=== PATIENT | male | born 1980 | race Two or more races ===

== ENCOUNTER 2018-10-27 09:15 | Emergency (ER) | payer MEDICAID ==
[~2018-10-27] VITALS: Ht 170.2 cm; Wt 99.0 kg
[2018-10-27] MEDS ORDERED: ketorolac tromethamine 15mg/ml inj. IM ONE (10:10)
[2018-10-27 10:11] LABS: BASOPHILS # (AUTO) 0.1 X10'3 (0-0.2); BASOPHILS % (AUTO) 0.7 % (0-1); EOSINOPHILS # (AUTO) 0.2 X10'3 (0-0.9); HEMATOCRIT 45.1 % (42.0-52.0); HEMOGLOBIN 15.3 g/dl (14.0-17.9); LYMPHOCYTES # (AUTO) 1.9 X10'3 (1.1-4.8); LYMPHOCYTES % (AUTO) 21.1 % (21-51); MEAN CORPUSCULAR HEMOGLOBIN 30.6 PG (27.0-31.0); MEAN CORPUSCULAR HGB CONC 33.9 g/dL (33.0-36.5); MEAN CORPUSCULAR VOLUME 90.1 FL (78-98); MEAN PLATELET VOLUME 6.9 FL (7.4-10.4); MONOCYTES # (AUTO) 1.1 X10'3 (0-0.9); MONOCYTES % (AUTO) 12.6 % (2-12); NEUTROPHILS # (AUTO) 5.6 X10'3 (1.8-7.7); NEUTROPHILS % (AUTO) 63.6 % (42-75); PLATELET COUNT 300 X10'3 (140-440); RED BLOOD COUNT 5.01 X10'6 (4.70-6.10); RED CELL DISTRIBUTION WIDTH 13.4 % (11.5-14.5); WHITE BLOOD COUNT 8.8 X10'3 (4.5-11.0)
[2018-10-27 10:13] LABS: CLARITY,URINE CLEAR (Clear); COLOR,URINE YELLOW (Yellow); GLUCOSE, URINE NEGATIVE (Neg); KETONES,URINE TRACE mg/dl (Neg); LEUKOCYTE ESTERASE ,URINE NEGATIVE (Neg); NITRITES, URINE NEGATIVE (Neg); OCCULT BLOOD,URINE SMALL (Neg); PROTEIN,URINE 30 mg/dl (Neg); UA COLLECTION TYPE CLN CATCH MIDSTREAM; UROBILINOGEN,URINE 0.2 E.U/dL (0.2-1.0)
[2018-10-27 10:19] LABS: MUCUS STRANDS FEW /LPF (Neg); SQUAMOUS EPITHELIAL CELL,UR FEW /LPF (FEW)
[2018-10-27 10:20] LABS: BACTERIA,URINE 1+ /HPF (Neg); RBC,URINE 0-2 /HPF (0-2); WBC,URINE 0-4 /HPF (0-4)
[2018-10-27 10:37] LABS: ALANINE AMINOTRANSFERASE 37 U/L (12-78); ALBUMIN 3.6 G/DL (3.4-5.0); ALBUMIN/GLOBULIN RATIO 0.8 (1.1-1.5); ALKALINE PHOSPHATASE 100 IU/L (46-116); ANION GAP 4 (8-16); ASPARTATE AMINO TRANSFERASE 18 U/L (10-37); BILIRUBIN,TOTAL 0.4 MG/DL (0.1-1.0); BLOOD UREA NITROGEN 16 MG/DL (7-18); BUN/CREATININE RATIO 7.9 (5.4-32.0); CHLORIDE 103 MMOL/L (99-107); CREATININE 2.03 MG/DL (0.60-1.10); GLUCOSE 112 MG/DL (70-104); LIPASE 122 U/L (73-393); POTASSIUM 3.8 MMOL/L (3.5-5.1); SODIUM 137 MMOL/L (135-145); TOTAL CARBON DIOXIDE 29.6 MMOL/L (24-32); TOTAL PROTEIN 7.9 G/DL (6.4-8.2); eGFR 37 ML/MIN
[2018-10-27] MEDS ORDERED: HYDROcodone/acetaminophen 5mg/325mg tablet PO ONE (10:40)
[2018-10-27 10:49] LABS: CALCIUM 9.1 MG/DL (8.5-10.1)
[2018-10-27] MEDS ORDERED: normal saline 1000ML IV soln IVB ONE (11:00)
[2018-10-27] MEDS ORDERED: FLO0.4C PO (12:30)
[2018-10-27] MEDS ORDERED: HYDR-3965 PO (12:30)
[2018-10-27] MEDS ORDERED: ONDA4TAB6 PO (12:30)
[2018-10-27 12:52] VITALS: BP 154/104
== END 2018-10-27 12:52 | disposition home or self-care (01) ==
LOC: ER 09:16
DX: N13.2 Hydronephrosis with renal and ureteral calculous obstruction (principal); R11.10 Vomiting, unspecified; G89.29 Other chronic pain; Z79.899 Other long term (current) drug therapy
CPT/HCPCS: 36415; 74176; 80053; 81001; 83690; 85025; 96360; 96372; 99284; J1885; J7030

== ENCOUNTER 2020-04-22 15:56 | Emergency (ER) | payer MEDICAID ==
[~2020-04-22] VITALS: Ht 170.2 cm; Wt 111.0 kg
[~2020-04-22 15:56] MED LIST: ONDA4TAB6 PO
== END 2020-04-22 17:03 | disposition home or self-care (01) ==
LOC: ER 15:57
DX: R51.9 Headache, unspecified (principal); Z20.828 Contact with and (suspected) exposure to other viral communicable diseases; G89.29 Other chronic pain; Z79.899 Other long term (current) drug therapy
CPT/HCPCS: 36415; 87635; 93005; 99284

== ENCOUNTER 2020-09-03 17:55 | Emergency (ER) | payer MEDICAID ==
[~2020-09-03] VITALS: Ht 170.2 cm; Wt 104.3 kg
[2020-09-03 20:05] LABS: BASOPHILS # (AUTO) 0.1 X10'3 (0-0.2); BASOPHILS % (AUTO) 1.2 % (0-1); EOSINOPHILS # (AUTO) 0.2 X10'3 (0-0.9); EOSINOPHILS % (AUTO) 2.5 % (0-6); HEMATOCRIT 41.2 % (42.0-52.0); HEMOGLOBIN 14.1 g/dl (14.0-17.9); LYMPHOCYTES # (AUTO) 2.1 X10'3 (1.1-4.8); LYMPHOCYTES % (AUTO) 25.5 % (21-51); MEAN CORPUSCULAR HEMOGLOBIN 30.3 PG (27.0-31.0); MEAN CORPUSCULAR HGB CONC 34.1 g/dL (33.0-36.5); MEAN CORPUSCULAR VOLUME 88.7 FL (78-98); MEAN PLATELET VOLUME 6.5 FL (7.4-10.4); MONOCYTES % (AUTO) 12.2 % (2-12); NEUTROPHILS # (AUTO) 4.8 X10'3 (1.8-7.7); NEUTROPHILS % (AUTO) 58.6 % (42-75); PLATELET COUNT 314 X10'3 (140-440); RED BLOOD COUNT 4.64 X10'6 (4.70-6.10); RED CELL DISTRIBUTION WIDTH 13.8 % (11.5-14.5); WHITE BLOOD COUNT 8.2 X10'3 (4.5-11.0)
[2020-09-03 20:17] LABS: PARTIAL THROMBOPLASTIN TIME 28 SECONDS (22-32)
[2020-09-03 20:20] LABS: ALANINE AMINOTRANSFERASE 37 U/L (12-78); ALBUMIN 3.5 G/DL (3.4-5.0); ALBUMIN/GLOBULIN RATIO 0.9 (1.1-1.5); ALKALINE PHOSPHATASE 105 IU/L (46-116); ANION GAP 7 (8-16); ASPARTATE AMINO TRANSFERASE 23 U/L (10-37); BILIRUBIN,TOTAL 0.2 MG/DL (0.1-1.0); BLOOD UREA NITROGEN 14 MG/DL (7-18); BUN/CREATININE RATIO 10.3 (5.4-32.0); C-REACTIVE PROTEIN 2.21 MG/DL (0.0-0.5); CALCIUM 8.5 MG/DL (8.5-10.1); CHLORIDE 107 MMOL/L (99-107); CREATININE 1.36 MG/DL (0.60-1.10); GLUCOSE 103 MG/DL (70-104); POTASSIUM 3.9 MMOL/L (3.5-5.1); SODIUM 142 MMOL/L (135-145); TOTAL CARBON DIOXIDE 28.2 MMOL/L (24-32); TOTAL PROTEIN 7.6 G/DL (6.4-8.2); eGFR 58 ML/MIN
[2020-09-03] MEDS ORDERED: CEPH-585 PO (21:33)
[2020-09-03] MEDS ORDERED: PRED20TA PO (21:35)
[2020-09-03] MEDS ORDERED: mupirocin 2% ointment 22GM TP ONE (21:40)
[2020-09-03 21:46] VITALS: BP 160/92
== END 2020-09-03 21:48 | disposition home or self-care (01) ==
LOC: ER 17:55
DX: L03.115 Cellulitis of right lower limb (principal); M79.671 Pain in right foot; M79.604 Pain in right leg; Z79.2 Long term (current) use of antibiotics; Z79.899 Other long term (current) drug therapy
CPT/HCPCS: 36415; 73630; 80053; 85025; 85610; 85651; 85730; 86140; 99284

== ENCOUNTER 2020-09-25 17:17 | Emergency (ER) | payer MEDICAID ==
[~2020-09-25 17:17] MED LIST changes: +PRED20TA PO
== END 2020-09-25 19:11 | disposition left against medical advice (07) ==
LOC: ER 17:17
DX: R10.9 Unspecified abdominal pain (principal); Z53.21 Procedure and treatment not carried out due to patient leaving prior to being seen by health care provider

== ENCOUNTER 2021-12-09 08:18 | Emergency (ER) | payer MEDICAID ==
[~2021-12-09] VITALS: Ht 170.2 cm; Wt 121.0 kg
[~2021-12-09 08:18] MED LIST changes: -PRED20TA PO
[2021-12-09 08:23] VITALS: BP 235/135
== END 2021-12-09 11:21 | disposition left against medical advice (07) ==
LOC: ER 08:18
DX: K08.89 Other specified disorders of teeth and supporting structures (principal); Z53.21 Procedure and treatment not carried out due to patient leaving prior to being seen by health care provider

== ENCOUNTER 2021-12-09 20:24 | Emergency (ER) | payer MEDICAID ==
[~2021-12-09] VITALS: Ht 170.2 cm; Wt 120.8 kg
[2021-12-09 20:41] VITALS: BP 203/113
== END 2021-12-09 23:21 | disposition left against medical advice (07) ==
LOC: ER 20:25
DX: K13.79 Other lesions of oral mucosa (principal); Z53.21 Procedure and treatment not carried out due to patient leaving prior to being seen by health care provider

== ENCOUNTER 2021-12-23 13:32 | Emergency (ER) | payer MEDICAID ==
[~2021-12-23] VITALS: Ht 170.2 cm; Wt 118.2 kg
[2021-12-23 13:42] VITALS: BP 205/124
== END 2021-12-23 17:58 | disposition left against medical advice (07) ==
LOC: ER 13:32
DX: K08.89 Other specified disorders of teeth and supporting structures (principal); Z53.21 Procedure and treatment not carried out due to patient leaving prior to being seen by health care provider

== ENCOUNTER 2021-12-25 00:39 | Emergency (ER) | payer MEDICAID ==
[~2021-12-25] VITALS: Ht 170.2 cm; Wt 122.6 kg
[2021-12-25 00:43] VITALS: BP 208/125
[2021-12-25] MEDS ORDERED: amoxicillin 250mg capsule PO ONE (03:05)
[2021-12-25] MEDS ORDERED: AMOX500C2 PO (03:05)
--- NOTE | 2021-12-25 03:10 | NUR ---
po med given
== END 2021-12-25 03:10 | disposition home or self-care (01) ==
LOC: ER 00:39
DX: K04.7 Periapical abscess without sinus (principal); K08.89 Other specified disorders of teeth and supporting structures; F17.200 Nicotine dependence, unspecified, uncomplicated; Z79.2 Long term (current) use of antibiotics; Z79.899 Other long term (current) drug therapy
CPT/HCPCS: 99283

== ENCOUNTER 2023-03-25 05:38 | Emergency (ER) | payer MEDICAID ==
[~2023-03-25] VITALS: Ht 170.2 cm; Wt 120.0 kg
[2023-03-25 05:42] VITALS: BP 178/119; PULSE 100; RESP 20; TEMP 98.2; O2SAT 99
== END 2023-03-25 07:21 | disposition left against medical advice (07) ==
LOC: ER 05:38
DX: R06.02 Shortness of breath (principal); Z53.21 Procedure and treatment not carried out due to patient leaving prior to being seen by health care provider
CPT/HCPCS: 71045; 93005; 99281

== ENCOUNTER 2023-04-22 23:58 | Inpatient (IN) | payer MEDICAID ==
[~2023-04-22] VITALS: Ht 170.2 cm; Wt 120.0 kg
[2023-04-23 00:03] VITALS: TEMP 98
[2023-04-23 00:53] LABS: BASOPHILS % (AUTO) 0.3 % (0-1); EOSINOPHILS # (AUTO) 0.1 X10'3 (0-0.9); EOSINOPHILS % (AUTO) 1.6 % (0-6); HEMATOCRIT 52.9 % (42.0-52.0); HEMOGLOBIN 17.7 g/dl (14.0-17.9); LYMPHOCYTES # (AUTO) 2.3 X10'3 (1.1-4.8); LYMPHOCYTES % (AUTO) 24.9 % (21-51); MEAN CORPUSCULAR HEMOGLOBIN 29.5 PG (27.0-31.0); MEAN CORPUSCULAR HGB CONC 33.6 g/dL (33.0-36.5); MEAN CORPUSCULAR VOLUME 87.9 FL (78-98); MONOCYTES % (AUTO) 10.1 % (2-12); NEUTROPHILS # (AUTO) 5.9 X10'3 (1.8-7.7); NEUTROPHILS % (AUTO) 63.1 % (42-75); PLATELET COUNT 324 X10'3 (140-440); RED BLOOD COUNT 6.02 X10'6 (4.70-6.10); WHITE BLOOD COUNT 9.4 X10'3 (4.5-11.0)
[2023-04-23 01:04] LABS: ALANINE AMINOTRANSFERASE 48 U/L (12-78); ALBUMIN 3.2 G/DL (3.4-5.0); ALBUMIN/GLOBULIN RATIO 0.8 (1.1-1.5); ALKALINE PHOSPHATASE 80 IU/L (46-116); ANION GAP 8 (8-16); ASPARTATE AMINO TRANSFERASE 39 U/L (10-37); BILIRUBIN,TOTAL 0.5 MG/DL (0.1-1.0); BLOOD UREA NITROGEN 11 MG/DL (7-18); BUN/CREATININE RATIO 6.8 (10.0-20.0); CALCIUM 8.5 MG/DL (8.5-10.1); CHLORIDE 104 MMOL/L (99-107); CREATININE 1.62 MG/DL (0.60-1.10); GLUCOSE 164 MG/DL (70-104); POTASSIUM 3.6 MMOL/L (3.5-5.1); SODIUM 139 MMOL/L (135-145); TOTAL CARBON DIOXIDE 27.1 MMOL/L (24-32); TOTAL PROTEIN 7.1 G/DL (6.4-8.2); eCRCL 54 ML/MIN; eGFR 47 ML/MIN
[2023-04-23 01:12] LABS: PRO BRAIN NATRIURETIC PEPTIDE 651 PG/ML (0-125)
[2023-04-23] MEDS ORDERED: niCARDipine-NS 40mg/200ml IVPB 200 ML IV PRN (01:20)
[2023-04-23] MEDS ORDERED: aspirin 325mg tablet PO ONE (01:20)
[2023-04-23] MEDS ORDERED: enoxaparin 100mg/ml syringe SUBCUT ONE (01:30)
[2023-04-23] MEDS ORDERED: enoxaparin 60mg/0.6ml syringe SUBCUT ONE (01:35)
[2023-04-23] MEDS ORDERED: niCARDipine-NS 40mg/200ml IVPB 200 ML IV SCH (01:50)
[2023-04-23] MEDS ORDERED: magnesium Cl slow-release 64mg tablet PO PRN (01:50)
[2023-04-23] MEDS ORDERED: morphine 2 MG/ML inj. syringe IV PRN (01:50)
[2023-04-23] MEDS ORDERED: magnesium 2GM in 50ml NS 50 ML IV PRN (01:50)
[2023-04-23] MEDS ORDERED: HYDROcodone/acetaminophen 5mg/325mg tablet PO PRN (01:50)
[2023-04-23] MEDS ORDERED: ondansetron/PF 4mg/2ml inj IV PRN (01:50)
[2023-04-23] MEDS ORDERED: potassium Cl 40MEQ/1/2NS 520ml 520 ML IV PRN (01:50)
[2023-04-23] MEDS ORDERED: potassium Cl 20 mEq SR tablet PO PRN ×2 (01:50)
[2023-04-23] MEDS ORDERED: magnesium 4gm in 100ml NS 100 ML IV PRN (01:50)
[2023-04-23] MEDS ORDERED: acetaminophen 325mg tablet PO PRN ×2 (01:50)
[2023-04-23 02:11] LABS: D-DIMER 0.65 MG/L FEU (0-0.50)
[2023-04-23] MEDS ORDERED: albuterol 2.5 MG/3 ML nebule NEB SCH (04:00)
[2023-04-23 04:43] VITALS: PULSE 91; RESP 18; O2SAT 91
[2023-04-23 04:57] LABS: BILIRUBIN,URINE NEGATIVE (Neg); CLARITY,URINE CLEAR (Clear); COLOR,URINE YELLOW (Yellow); GLUCOSE, URINE 100 mg/dl (Neg); KETONES,URINE NEGATIVE (Neg); LEUKOCYTE ESTERASE ,URINE NEGATIVE (Neg); NITRITES, URINE NEGATIVE (Neg); OCCULT BLOOD,URINE TRACE-INTACT (Neg); PROTEIN,URINE TRACE mg/dl (Neg); UROBILINOGEN,URINE 0.2 E.U/dL (0.2-1.0)
[2023-04-23 04:58] LABS: UA COLLECTION TYPE VOIDED
[2023-04-23 05:11] LABS: BACTERIA,URINE FEW /HPF (Neg); MUCUS STRANDS FEW /LPF (Neg); RBC,URINE 0-2 /HPF (0-2); SQUAMOUS EPITHELIAL CELL,UR FEW /LPF (FEW); WBC,URINE 0-4 /HPF (0-4)
[2023-04-23 05:25] LABS: URINE AMPHETAMINE SCREEN POSITIVE (Neg); URINE BARBITUATE SCREEN NEGATIVE (Neg); URINE BENZODIAZEPINES SCREEN NEGATIVE (Neg); URINE CANNABINOID SCREEN NEGATIVE (Neg); URINE COCAINE SCREEN NEGATIVE (Neg); URINE METHADONE SCREEN NEGATIVE (Neg); URINE OPIATE SCREEN NEGATIVE (Neg); URINE PHENCYCLIDINE SCREEN NEGATIVE (Neg)
[2023-04-23] MEDS ORDERED: lisinopril 10 MG tablet PO ONE (06:00)
[2023-04-23 06:18] VITALS: BP 160/98; PULSE 90; RESP 18; O2SAT 97
[2023-04-23] MEDS ORDERED: methylPREDNISolone sod succ 125mg/2ml vial IV SCH (08:00)
[2023-04-23] MEDS ORDERED: CefTRIAXone 2gm/D5W 50ml BAG 50 ML IV SCH (08:00)
[2023-04-23] MEDS ORDERED: enoxaparin 40mg/0.4ml syringe SQ SCH (20:00)
[2023-04-23] MEDS ORDERED: temazepam 15mg capsule PO PRN (21:00)
== END 2023-04-23 06:33 | disposition left against medical advice (07) | DRG 199 ==
LOC: ER 23:59 → ED HOLD 04-23 01:53
PROVIDERS: ADMIT Internal Medicine; ATTEND Internal Medicine
DX: I16.1 Hypertensive emergency (principal); I21.A1 Myocardial infarction type 2; Z53.21 Procedure and treatment not carried out due to patient leaving prior to being seen by health care provider; F17.200 Nicotine dependence, unspecified, uncomplicated; G89.29 Other chronic pain; I12.9 Hypertensive chronic kidney disease with stage 1 through stage 4 chronic kidney disease, or unspecified chronic kidney disease; N18.9 Chronic kidney disease, unspecified; F19.10 Other psychoactive substance abuse, uncomplicated; Z79.899 Other long term (current) drug therapy
CPT/HCPCS: 36415; 71045; 80053; 80305; 81001; 83880; 84145; 84484; 85025; 85379; 85651; 87040; 93005; 94760; 99285; G0378; J1650; J3490

== ENCOUNTER 2023-04-28 11:07 | Emergency (ER) | payer MEDICAID ==
[~2023-04-28] VITALS: Ht 170.2 cm; Wt 124.6 kg
[2023-04-28 11:21] LABS: BASOPHILS # (AUTO) 0.2 X10'3 (0-0.2); BASOPHILS % (AUTO) 1.5 % (0-1); EOSINOPHILS # (AUTO) 0.1 X10'3 (0-0.9); EOSINOPHILS % (AUTO) 1.1 % (0-6); HEMATOCRIT 56.7 % (42.0-52.0); LYMPHOCYTES # (AUTO) 2.4 X10'3 (1.1-4.8); MEAN CORPUSCULAR HEMOGLOBIN 29.1 PG (27.0-31.0); MEAN CORPUSCULAR VOLUME 88.4 FL (78-98); MEAN PLATELET VOLUME 7.2 FL (7.4-10.4); MONOCYTES # (AUTO) 1.2 X10'3 (0-0.9); MONOCYTES % (AUTO) 9.9 % (2-12); NEUTROPHILS # (AUTO) 8.6 X10'3 (1.8-7.7); NEUTROPHILS % (AUTO) 68.5 % (42-75); PLATELET COUNT 333 X10'3 (140-440); RED BLOOD COUNT 6.41 X10'6 (4.70-6.10); RED CELL DISTRIBUTION WIDTH 16.3 % (11.5-14.5); WHITE BLOOD COUNT 12.5 X10'3 (4.5-11.0)
[2023-04-28 11:25] VITALS: BP 219/126; PULSE 103; RESP 22; TEMP 98.2; O2SAT 96
[2023-04-28] MEDS ORDERED: cloNIDine 0.1 mg tablet PO ONE (11:40)
[2023-04-28 11:56] LABS: HEMOGLOBIN 18.7 g/dl (14.0-17.9)
[2023-04-28 12:07] LABS: ALANINE AMINOTRANSFERASE 45 U/L (12-78); ALBUMIN 3.4 G/DL (3.4-5.0); ALBUMIN/GLOBULIN RATIO 0.8 (1.1-1.5); ALKALINE PHOSPHATASE 93 IU/L (46-116); ANION GAP 13 (8-16); ASPARTATE AMINO TRANSFERASE 41 U/L (10-37); BILIRUBIN,TOTAL 0.5 MG/DL (0.1-1.0); BLOOD UREA NITROGEN 13 MG/DL (7-18); BUN/CREATININE RATIO 8.3 (10.0-20.0); CALCIUM 8.9 MG/DL (8.5-10.1); CHLORIDE 101 MMOL/L (99-107); CREATININE 1.57 MG/DL (0.60-1.10); GLUCOSE 172 MG/DL (70-104); POTASSIUM 3.5 MMOL/L (3.5-5.1); SODIUM 137 MMOL/L (135-145); TOTAL CARBON DIOXIDE 22.8 MMOL/L (24-32); TOTAL PROTEIN 7.8 G/DL (6.4-8.2); eCRCL 56 ML/MIN; eGFR 48 ML/MIN
[2023-04-28 12:13] LABS: PRO BRAIN NATRIURETIC PEPTIDE 986 PG/ML (0-125)
[2023-04-28 12:34] LABS: APTT 31 SECONDS (22-32); D-DIMER 0.79 MG/L FEU (0-0.50); INR 1.1 INR; PROTHROMBIN TIME 12.2 SECONDS (9.0-12.0)
== END 2023-04-28 14:20 | disposition left against medical advice (07) ==
LOC: ER 11:07
DX: R06.02 Shortness of breath (principal); Z53.21 Procedure and treatment not carried out due to patient leaving prior to being seen by health care provider
CPT/HCPCS: 36415; 71045; 80053; 83880; 84484; 85025; 85379; 85610; 85730; 93005; 99281

== ENCOUNTER 2024-06-17 12:12 | Inpatient (IN) | payer MEDICAID ==
[~2024-06-17] VITALS: Ht 170.2 cm; Wt 124.0 kg
[2024-06-17 12:58] LABS: BASOPHILS # (AUTO) 0.1 X10'3 (0-0.2); BASOPHILS % (AUTO) 0.8 % (0-1); EOSINOPHILS # (AUTO) 0.1 X10'3 (0-0.9); EOSINOPHILS % (AUTO) 1.3 % (0-6); LYMPHOCYTES # (AUTO) 2.2 X10'3 (1.1-4.8); LYMPHOCYTES % (AUTO) 20.6 % (21-51); MEAN CORPUSCULAR HEMOGLOBIN 30.9 PG (27.0-31.0); MEAN CORPUSCULAR HGB CONC 33.6 g/dL (33.0-36.5); MEAN CORPUSCULAR VOLUME 91.9 FL (78-98); MONOCYTES % (AUTO) 9.1 % (2-12); NEUTROPHILS # (AUTO) 7.3 X10'3 (1.8-7.7); NEUTROPHILS % (AUTO) 68.2 % (42-75); PLATELET COUNT 273 X10'3 (140-440); RED BLOOD COUNT 6.63 X10'6 (4.70-6.10); RED CELL DISTRIBUTION WIDTH 14.2 % (11.5-14.5); WHITE BLOOD COUNT 10.8 X10'3 (4.5-11.0)
[2024-06-17 13:01] LABS: HEMOGLOBIN 20.5 g/dl (14.0-17.9)
[2024-06-17 13:11] LABS: ALANINE AMINOTRANSFERASE 43 U/L (12-78); ALBUMIN 3.5 G/DL (3.4-5.0); ALBUMIN/GLOBULIN RATIO 0.7 (1.1-1.5); ALKALINE PHOSPHATASE 143 IU/L (46-116); ANION GAP 6 (8-16); ASPARTATE AMINO TRANSFERASE 40 U/L (10-37); BILIRUBIN,TOTAL 0.4 MG/DL (0.1-1.0); BLOOD UREA NITROGEN 12 MG/DL (7-18); BUN/CREATININE RATIO 8.1 (10.0-20.0); CALCIUM 8.8 MG/DL (8.5-10.1); CHLORIDE 97 MMOL/L (99-107); CREATININE 1.48 MG/DL (0.60-1.10); POTASSIUM 4.6 MMOL/L (3.5-5.1); SODIUM 133 MMOL/L (135-145); TOTAL CARBON DIOXIDE 29.7 MMOL/L (24-32); TOTAL PROTEIN 8.2 G/DL (6.4-8.2); eCRCL 59 ML/MIN; eGFR 51 ML/MIN
[2024-06-17 13:15] LABS: GLUCOSE 424 MG/DL (70-104)
[2024-06-17 13:18] LABS: PRO BRAIN NATRIURETIC PEPTIDE 650 PG/ML (0-125)
[2024-06-17] MEDS ORDERED: enalaprilat 1.25mg/ml 2ml vial IV ONE (13:30)
[2024-06-17] MEDS: normal saline 1000ML IV soln IVB ONE ×2 (14:04→15:03)
[2024-06-17] MEDS: nitroGLYCERIN 0.4mg/hour patch TD ONE (14:04)
[2024-06-17] MEDS: aspirin 81mg tab.chew PO ONE (14:13)
[2024-06-17] MEDS: carvedilol 6.25mg tablet PO STA (14:13)
[2024-06-17] MEDS: enalaprilat 1.25mg/ml 2ml vial IV ONE (14:13)
[2024-06-17] MEDS ORDERED: ondansetron/PF 4mg/2ml inj IV PRN (15:05)
[2024-06-17] MEDS ORDERED: potassium Cl 20 mEq SR tablet PO PRN ×2 (15:05)
[2024-06-17] MEDS ORDERED: potassium Cl 40MEQ/1/2NS 520ml 520 ML IV PRN (15:05)
[2024-06-17] MEDS ORDERED: magnesium sulf-water 2g/50mL 50 ML IV PRN (15:05)
[2024-06-17] MEDS ORDERED: magnesium Cl slow-release 64mg tablet PO PRN (15:05)
[2024-06-17] MEDS ORDERED: acetaminophen 325mg tablet PO PRN (15:05)
[2024-06-17] MEDS ORDERED: magnesium sulf-water 4G/100mL 100 ML IV PRN (15:05)
[2024-06-17] MEDS: insulin regular, human 10 units/0.1 ml syringe SQ ONE (15:07)
[2024-06-17] MEDS: PERFLUTREN PROTEIN-A MICROSPHR (Optison) 0.22 MG/ML 3ML VIAL IV ONE (15:09)
[2024-06-17] MEDS ORDERED: glucagon, human recombinant 1mg kit SUBCUT PRN (15:10)
[2024-06-17] MEDS ORDERED: dextrose 50%-water 50ml dispensing syringe IV PRN ×2 (15:10)
[2024-06-17] MEDS ORDERED: DEXTROSE 15 GM of carb/4 tabs (each vial/BOTTLE has 4 tablets) PO PRN ×2 (15:10)
[2024-06-17] MEDS ORDERED: SACU1TAB4 PO (15:12)
[2024-06-17] MEDS ORDERED: CARV-50 PO (15:12)
[2024-06-17] MEDS ORDERED: FURO40TA4 PO (15:12)
[2024-06-17] MEDS ORDERED: ATOR40TA72 PO (15:12)
[2024-06-17] MEDS ORDERED: ASPI-1475 PO (15:12)
[2024-06-17] MEDS ORDERED: SPIR25TA5 PO (15:12)
[2024-06-17] MEDS ORDERED: LOSA100T58 PO (15:12)
[2024-06-17 16:46] LABS: HEMOGLOBIN A1C 10.3 % (4.5-6.2)
[2024-06-17] MEDS: furosemide 40mg/4ml inj IV ONE (17:09)
[2024-06-17] MEDS: INSULIN LISPRO 100 UNIT/ML INSULN.PEN MULTI-DOSE SQ SCH ×2 (17:30→18:41)
[2024-06-17 17:55] VITALS: BP 137/76; PULSE 109; RESP 20; O2SAT 95
[2024-06-17] MEDS ORDERED: labetalol 20mg/4ml (5mg/ml) syringe IV PRN (18:00)
[2024-06-17 18:04] LABS: BILIRUBIN,URINE NEGATIVE (Neg); CLARITY,URINE CLEAR (Clear); COLOR,URINE YELLOW (Yellow); GLUCOSE, URINE >=1000 mg/dl (Neg); KETONES,URINE NEGATIVE (Neg); LEUKOCYTE ESTERASE ,URINE NEGATIVE (Neg); NITRITES, URINE NEGATIVE (Neg); OCCULT BLOOD,URINE NEGATIVE (Neg); PROTEIN,URINE NEGATIVE (Neg); UROBILINOGEN,URINE 0.2 E.U/dL (0.2-1.0)
[2024-06-17 18:11] LABS: UA COLLECTION TYPE NON-SPECIFIED
[2024-06-17 18:12] LABS: WBC,URINE NONE SEEN /HPF (0-4)
[2024-06-17 18:13] LABS: BACTERIA,URINE FEW /HPF (Neg); RBC,URINE 0-2 /HPF (0-2); SQUAMOUS EPITHELIAL CELL,UR NONE SEEN /LPF (FEW)
[2024-06-17 18:23] LABS: URINE AMPHETAMINE SCREEN POSITIVE (Neg); URINE BARBITUATE SCREEN NEGATIVE (Neg); URINE BENZODIAZEPINES SCREEN NEGATIVE (Neg); URINE CANNABINOID SCREEN NEGATIVE (Neg); URINE COCAINE SCREEN NEGATIVE (Neg); URINE METHADONE SCREEN NEGATIVE (Neg); URINE OPIATE SCREEN NEGATIVE (Neg); URINE PHENCYCLIDINE SCREEN NEGATIVE (Neg)
[2024-06-17 18:27] LABS: BASOPHILS # (AUTO) 0.1 X10'3 (0-0.2); BASOPHILS % (AUTO) 1.3 % (0-1); EOSINOPHILS # (AUTO) 0.2 X10'3 (0-0.9); EOSINOPHILS % (AUTO) 1.8 % (0-6); HEMATOCRIT 53.8 % (42.0-52.0); LYMPHOCYTES # (AUTO) 2.1 X10'3 (1.1-4.8); LYMPHOCYTES % (AUTO) 22.2 % (21-51); MEAN CORPUSCULAR HEMOGLOBIN 30.8 PG (27.0-31.0); MEAN CORPUSCULAR HGB CONC 33.7 g/dL (33.0-36.5); MEAN CORPUSCULAR VOLUME 91.3 FL (78-98); MEAN PLATELET VOLUME 7.6 FL (7.4-10.4); MONOCYTES # (AUTO) 0.8 X10'3 (0-0.9); MONOCYTES % (AUTO) 8.8 % (2-12); NEUTROPHILS # (AUTO) 6.3 X10'3 (1.8-7.7); NEUTROPHILS % (AUTO) 65.9 % (42-75); PLATELET COUNT 263 X10'3 (140-440); RED BLOOD COUNT 5.89 X10'6 (4.70-6.10); RED CELL DISTRIBUTION WIDTH 13.9 % (11.5-14.5); WHITE BLOOD COUNT 9.6 X10'3 (4.5-11.0)
[2024-06-17] MEDS: docusate sod 100mg capsule PO SCH (18:41)
[2024-06-17 18:54] LABS: HEMOGLOBIN 18.1 g/dl (14.0-17.9)
[2024-06-17] MEDS ORDERED: iohexol 350MG/ML 100ml bottle IV ONE (19:28)
[2024-06-17] MEDS ORDERED: SACUBITRIL PO SCH (20:00)
[2024-06-17] MEDS ORDERED: VALSARTAN PO SCH (20:00)
[2024-06-17] MEDS: K and/or MAG REPLACEMENT MC SCH (20:00)
[2024-06-17] MEDS: carVEDilol 12.5mg tablet PO SCH (20:14)
[2024-06-17] MEDS: insulin glargine (Lantus) pen - multi-dose SQ SCH (20:23)
[2024-06-17 20:50] VITALS: TEMP 98.2
[2024-06-18] MEDS ORDERED: aspirin 81mg, enteric-coated 1 TAB TABLET.DR PO SCH (08:00)
[2024-06-18] MEDS ORDERED: enoxaparin 40mg/0.4ml syringe SUBCUT SCH (08:00)
[2024-06-18] MEDS ORDERED: losartan 50mg tablet PO SCH (08:00)
[2024-06-18] MEDS ORDERED: atorvastatin 20mg tablet PO SCH (08:00)
[2024-06-18] MEDS ORDERED: spironolactone 25 MG tablet PO SCH (08:00)
[2024-06-18] MEDS ORDERED: furosemide 40mg/4ml inj IV SCH (08:00)
== END 2024-06-17 21:50 | disposition left against medical advice (07) | DRG 199 ==
LOC: ER 12:13 → ED HOLD 15:01 → UNDOADMIN 15:01 → ED HOLD 15:06 → EDBEDREQ 19:51 → UNDODISIN 21:50
PROVIDERS: ADMIT Family Medicine; ATTEND Family Medicine
PROC: BW241ZZ Computerized Tomography (CT Scan) of Chest and Abdomen using Low Osmolar Contrast (ICD-10-PCS; principal; 2024-06-17)
DX: I16.1 Hypertensive emergency (principal); N17.9 Acute kidney failure, unspecified; I13.0 Hypertensive heart and chronic kidney disease with heart failure and stage 1 through stage 4 chronic kidney disease, or unspecified chronic kidney disease; E86.0 Dehydration; D75.1 Secondary polycythemia; G89.29 Other chronic pain; Z53.21 Procedure and treatment not carried out due to patient leaving prior to being seen by health care provider; N18.31 Chronic kidney disease, stage 3a; F15.90 Other stimulant use, unspecified, uncomplicated; I50.9 Heart failure, unspecified; Z87.891 Personal history of nicotine dependence; Z79.899 Other long term (current) drug therapy; Z79.82 Long term (current) use of aspirin
CPT/HCPCS: 36415; 71045; 71275; 80053; 80305; 81001; 82948; 83036; 83880; 84484; 85025; 87081; 93005; 93306; 99291; G0378; J1815; J1940; J3490; J7030; Q9967